=== PATIENT | female | born 1985 | race Caucasian/White ===

== ENCOUNTER 2025-06-14 18:53 | Emergency (ER) | payer OTHER ==
[~2025-06-14] VITALS: Ht 162.6 cm; Wt 85.0 kg
[2025-06-14 19:05] VITALS: O2SAT 99
[2025-06-14 19:10] VITALS: BP 103/68; PULSE 75; RESP 18; TEMP 36.8; O2SAT 95
[2025-06-14] MEDS: ACETAMINOPHEN 325MG TABLET PO ONE (20:15)
== END 2025-06-14 22:55 | disposition home or self-care (01) ==
LOC: ER 18:53
DX: S43.101A Unspecified dislocation of right acromioclavicular joint, initial encounter (principal); M25.531 Pain in right wrist; M25.551 Pain in right hip; Z98.51 Tubal ligation status; V89.2XXA Person injured in unspecified motor-vehicle accident, traffic, initial encounter; Y93.89 Activity, other specified; Y92.410 Unspecified street and highway as the place of occurrence of the external cause; Y99.8 Other external cause status
CPT/HCPCS: 29125; 71045; 73030; 73080; 73110; 73130; 73502; 81025; 99284